=== PATIENT | female | born 1970 | race Caucasian/White ===

== ENCOUNTER 2018-02-11 09:50 | Day surgery (SDC) | payer MEDICARE, OTHER ==
[2018-02-11 11:03] LABS: ADD MAN DIFF? NO
[2018-02-11 11:18] LABS: WHITE BLOOD COUNT 7.9 10^3/ul (4.8-10.8)
[2018-02-11 11:18] LABS: BASOPHILS % 0.4 % (0.0-2.0); EOSINOPHILS # 0.3 10^3/ul (0.0-0.5); EOSINOPHILS % 3.2 % (0.0-7.0); HEMATOCRIT 34.7 % (37.0-47.0); HEMOGLOBIN 11.3 g/dl (12.0-16.0); MEAN CORPUSCULAR HEMOGLOBIN 30.4 pg (29.0-33.0); MEAN CORPUSCULAR HGB CONC 32.6 g/dl (32.0-37.0); MEAN CORPUSCULAR VOLUME 93.3 fl (82.0-101.0); MEAN PLATELET VOLUME 10.8 fl (7.4-10.4); MONOCYTE # 0.6 10^3/ul (0.3-0.9); NEUTROPHIL # 5.1 10^3/ul (1.6-7.5); PLATELET COUNT 265 10^3/UL (140-415); RED BLOOD COUNT 3.72 10^6/ul (4.20-5.40); RED CELL DISTRIBUTION WIDTH 14.2 % (11.5-14.5)
[2018-02-11 11:37] LABS: ADD UMIC YES; UR ASCORBIC ACID NEGATIVE (NEGATIVE); UR BILIRUBIN (Dip) NEGATIVE (NEGATIVE); UR BLOOD (Dip) NEGATIVE (NEGATIVE); UR CLARITY CLEAR (CLEAR); UR COLOR STRAW (YELLOW); UR GLUCOSE (Dip) 1+ mg/dL (NEGATIVE); UR KETONES (Dip) NEGATIVE (NEGATIVE); UR LEUKOCYTE ESTERASE (Dip) 1+ Leu/ul (NEGATIVE); UR NITRITE (Dip) NEGATIVE (NEGATIVE); UR RBC 1 /HPF (0-5); UR SPECIFIC GRAVITY (Dip) 1.008 (1.003-1.030); UR SQUAMOUS EPITHELIAL CELL FEW /HPF (FEW); UR TOTAL PROTEIN (Dip) 2+ mg/dl (NEGATIVE); UR UROBILINOGEN (Dip) NEGATIVE (NEGATIVE); UR WBC 3 /HPF (0-5)
[2018-02-11 11:43] LABS: INR 0.97
[2018-02-11 11:54] LABS: ANION GAP 17 (8-16); BLOOD UREA NITROGEN 36 mg/dl (7-20); CALCIUM 8.3 mg/dl (8.4-10.2); CARBON DIOXIDE 30 mmol/L (21-31); CHLORIDE 94 mmol/L (97-110); CREATININE 4.31 mg/dl (0.44-1.00); GLUCOSE 136 mg/dl (70-220); SODIUM 135 mmol/L (135-144)
[2018-02-11 12:05] LABS: POTASSIUM 6.2 mmol/L (3.5-5.1)
[2018-02-11 12:06] LABS: PARTIAL THROMBOPLASTIN TIME 37.4 Sec (25.0-35.0)
[2018-02-11] MEDS ORDERED: SOD CHLORIDE 0.9% 1,000 ML IV (12:30)
[2018-02-11] MEDS ORDERED: CEFAZOLIN 2 GM/50 ML (PMX) 50 ML IVPB (13:30)
[2018-02-11 13:47] LABS: ANION GAP 14 (8-16); BLOOD UREA NITROGEN 35 mg/dl (7-20); CARBON DIOXIDE 31 mmol/L (21-31); CHLORIDE 96 mmol/L (97-110); CREATININE 4.63 mg/dl (0.44-1.00); GLUCOSE 128 mg/dl (70-220); POTASSIUM 4.4 mmol/L (3.5-5.1); SODIUM 137 mmol/L (135-144)
[2018-02-11 14:19] LABS: CALCIUM 8.1 mg/dl (8.4-10.2)
[2018-02-11] MEDS ORDERED: IODIXANOL LOCM 100 ML BTL (15:18)
[2018-02-11] MEDS ORDERED: LIDOCAINE 1% (MDV) 20 ML INJ (15:18)
[2018-02-11] MEDS ORDERED: MIDAZOLAM 1 MG/ML 2 ML INJ (15:18)
[2018-02-11] MEDS ORDERED: FENTAnyl 50 MCG/ML VIAL (15:18)
[2018-02-11] MEDS ORDERED: IODIXANOL LOCM 50 ML BTL (16:09)
== END 2018-02-11 21:30 | disposition home or self-care (01) ==
LOC: SDS 09:50
DX: I70.261 Atherosclerosis of native arteries of extremities with gangrene, right leg (principal); I12.0 Hypertensive chronic kidney disease with stage 5 chronic kidney disease or end stage renal disease; N18.6 End stage renal disease; Z99.2 Dependence on renal dialysis; E11.9 Type 2 diabetes mellitus without complications; E03.9 Hypothyroidism, unspecified
CPT/HCPCS: 37228; 71045; 80048; 81001; 82962; 85025; 85610; 85730; 93005

== ENCOUNTER 2018-02-11 14:00 | Day surgery (SDC) | payer MEDICARE, OTHER ==
[2018-02-11] MEDS ORDERED: SODIUM CHLORIDE 0.9% 1L BAG IV ×2 (14:30)
[2018-02-11] MEDS ORDERED: ALBUMIN HUMAN 25% 100 ML IV ×2 (14:30)
== END 2018-02-12 17:49 | disposition home or self-care (01) ==
LOC: CCL 02-12 17:49 → E/R 14:00 → CCL 14:50
DX: I96 Gangrene, not elsewhere classified (principal); I70.261 Atherosclerosis of native arteries of extremities with gangrene, right leg (principal); I12.0 Hypertensive chronic kidney disease with stage 5 chronic kidney disease or end stage renal disease; Z53.8 Procedure and treatment not carried out for other reasons; N18.6 End stage renal disease; Z99.2 Dependence on renal dialysis; E11.9 Type 2 diabetes mellitus without complications; E03.9 Hypothyroidism, unspecified
CPT/HCPCS: 37228; 71045; 75625; 75710; 80048; 81001; 82962; 85025; 85610; 85730; 93005; 99284-25

== ENCOUNTER 2018-03-11 12:18 | Day surgery (SDC) | payer MEDICARE, OTHER ==
[2018-03-11 13:14] LABS: ADD MAN DIFF? NO
[2018-03-11 13:23] LABS: BASOPHILS % 0.5 % (0.0-2.0); EOSINOPHILS # 0.1 10^3/ul (0.0-0.5); EOSINOPHILS % 1.6 % (0.0-7.0); HEMATOCRIT 36.8 % (37.0-47.0); HEMOGLOBIN 12.3 g/dl (12.0-16.0); LYMPHOCYTES # 2.5 10^3/ul (0.8-2.9); LYMPHOCYTES % 33.8 % (15.0-51.0); MEAN CORPUSCULAR HEMOGLOBIN 30.4 pg (29.0-33.0); MEAN CORPUSCULAR HGB CONC 33.4 g/dl (32.0-37.0); MEAN CORPUSCULAR VOLUME 91.1 fl (82.0-101.0); MEAN PLATELET VOLUME 9.7 fl (7.4-10.4); MONOCYTE # 0.4 10^3/ul (0.3-0.9); NEUTROPHIL # 4.3 10^3/ul (1.6-7.5); PLATELET COUNT 338 10^3/UL (140-415); RED BLOOD COUNT 4.04 10^6/ul (4.20-5.40); RED CELL DISTRIBUTION WIDTH 13.2 % (11.5-14.5)
[2018-03-11 13:23] LABS: WHITE BLOOD COUNT 7.3 10^3/ul (4.8-10.8)
[2018-03-11 13:38] LABS: INR 0.95; PROTIME 12.8 Sec (11.9-14.9)
[2018-03-11 13:40] LABS: ANION GAP 14 (8-16); BLOOD UREA NITROGEN 38 mg/dl (7-20); CALCIUM 8.7 mg/dl (8.4-10.2); CARBON DIOXIDE 34 mmol/L (21-31); CHLORIDE 96 mmol/L (97-110); GLUCOSE 126 mg/dl (70-220); POTASSIUM 4.1 mmol/L (3.5-5.1); SODIUM 140 mmol/L (135-144)
[2018-03-11 13:43] LABS: PARTIAL THROMBOPLASTIN TIME 40.4 Sec (25.0-35.0)
[2018-03-11] MEDS ORDERED: SOD CHLORIDE 0.9% 500 ML (15:49)
[2018-03-11] MEDS ORDERED: HEPARIN 1000 UNITS/ML 10 ML INJ (15:49)
[2018-03-11] MEDS ORDERED: IODIXANOL LOCM 100 ML BTL (15:49)
[2018-03-11] MEDS ORDERED: FENTAnyl 50 MCG/ML VIAL (15:49)
[2018-03-11] MEDS ORDERED: LIDOCAINE 1% (MDV) 20 ML INJ (15:49)
[2018-03-11] MEDS ORDERED: MIDAZOLAM 1 MG/ML 2 ML INJ (15:50)
== END 2018-03-11 17:53 | disposition home or self-care (01) ==
LOC: SDS 12:18
DX: I12.0 Hypertensive chronic kidney disease with stage 5 chronic kidney disease or end stage renal disease (principal); N18.6 End stage renal disease; I70.261 Atherosclerosis of native arteries of extremities with gangrene, right leg; E11.9 Type 2 diabetes mellitus without complications
CPT/HCPCS: 36902; 36909; 80048; 82962; 85025; 85610; 85730

== ENCOUNTER → 2018-05-08 | Outpatient (CLI) | payer MEDICARE, OTHER | END | disposition home or self-care (01) | LOC: RAD 07:53 | DX: R76.11 Nonspecific reaction to tuberculin skin test without active tuberculosis (principal) | CPT/HCPCS: 71045 ==